=== PATIENT | female | born 1960 | race Caucasian/White ===

== ENCOUNTER → 2016-11-30 16:03 | Outpatient (CLI) | payer OTHER | END | disposition home or self-care (01) | LOC: D.MAMMO 11-27 11:00 → D.US 11-27 13:00 → D.MAMMO 09:00 | DX: N61.1 Abscess of the breast and nipple (principal); N64.4 Mastodynia ==

== ENCOUNTER 2017-09-06 09:00 | Outpatient (CLI) | payer OTHER | END 2017-09-06 23:59 | disposition home or self-care (01) | LOC: D.MAMMO 09:00 | DX: Z12.31 Encounter for screening mammogram for malignant neoplasm of breast (principal) ==

== ENCOUNTER 2018-09-08 08:00 | Outpatient (CLI) | payer OTHER | END 2018-09-08 09:00 | disposition home or self-care (01) | LOC: D.MAMMO 08:00 | DX: Z12.31 Encounter for screening mammogram for malignant neoplasm of breast (principal) ==

== ENCOUNTER → 2018-09-22 20:47 | Outpatient (CLI) | payer OTHER | END | disposition home or self-care (01) | LOC: D.MAMMO 08:30 | DX: R92.8 Other abnormal and inconclusive findings on diagnostic imaging of breast (principal) ==

== ENCOUNTER 2019-09-08 12:47 | Outpatient (CLI) | payer OTHER | END 2019-09-08 12:55 | disposition home or self-care (01) | LOC: D.MAMMO 12:47 | PROVIDERS: ATTEND Family Medicine | DX: Z12.31 Encounter for screening mammogram for malignant neoplasm of breast (principal) ==

== ENCOUNTER 2019-09-30 08:00 | Outpatient (CLI) | payer OTHER | END 2019-09-30 23:59 | disposition home or self-care (01) | LOC: D.MAMMO 08:00 | PROVIDERS: ATTEND Family Medicine | DX: R92.8 Other abnormal and inconclusive findings on diagnostic imaging of breast (principal) ==

== ENCOUNTER → 2020-04-18 09:42 | Outpatient (CLI) | payer OTHER | END | disposition home or self-care (01) | LOC: D.US 04-04 09:00 | PROVIDERS: ATTEND Family Medicine | DX: R92.8 Other abnormal and inconclusive findings on diagnostic imaging of breast (principal) ==

== ENCOUNTER → 2021-02-20 14:31 | Outpatient (CLI) | payer OTHER ==
[2020-11-28 12:39] VITALS: BMI 26.0
== END | disposition home or self-care (01) ==
LOC: D.US 14:00
PROVIDERS: ATTEND Family Medicine
DX: R92.8 Other abnormal and inconclusive findings on diagnostic imaging of breast (principal)

== ENCOUNTER 2021-03-03 05:54 | Day surgery (SDC) | payer OTHER ==
[~2021-03-03] VITALS: Ht 170.2 cm; Wt 74.5 kg
[2021-03-03 06:34] LABS: BASOPHILS 0.2 % (0-2); EOSINOPHILS 3.6 % (0-7); HEMATOCRIT 37.9 % (36.0-48.0); HEMOGLOBIN 12.4 g/dL (12-16); IMMATURE GRANULOCYTES 0.2 % (0-5); LYMPHOCYTE ABS# 3.08 10x3/uL (1.18-3.74); LYMPHOCYTES 32.3 % (15-50); MCH 30.7 pg (26.0-34.0); MCHC 32.7 g/dL (31.0-37.0); MCV 93.8 fL (80.0-100.0); MEAN PLATELET VOLUME 11.2 fL (7.4-10.4); MONOCYTES 9.1 % (2-11); NEUTROPHIL ABS# 5.22 10x3/uL (1.56-6.13); NEUTROPHILS 54.6 % (40-80); PLATELET COUNT 283 10x3/uL (130-400); RBC 4.04 10x6/uL (4.00-5.40); RDW 12.6 % (11.5-14.5); WBC 9.6 10x3/uL (4.8-10.8)
[2021-03-03 06:52] LABS: ALBUMIN 3.7 g/dL (3.4-5.0); BILIRUBIN - TOTAL 0.37 mg/dL (0.2-1.3); CALCIUM 9.4 mg/dL (8.5-10.1); CARBON DIOXIDE 26.1 mmol/L (21.0-32.0); CREATININE - SERUM 1.3 mg/dL (0.6-1.3); POTASSIUM - SERUM 4.1 mmol/L (3.5-5.1); PROTEIN - SERUM 6.8 g/dL (6.4-8.2)
[2021-03-03 06:54] LABS: INR 0.94 (0.85-1.17); PROTIME 11.6 SECONDS (11.6-15.0)
[2021-03-03 06:55] LABS: APTT 26.4 SECONDS (22.8-39.4)
[2021-03-03] MEDS ORDERED: PEPCID AC20 MG PO (07:10)
[2021-03-03] MEDS ORDERED: TENORMIN25 MG (07:10)
[2021-03-03] MEDS ORDERED: NEXIUM40 MG PO (07:11)
[2021-03-03] MEDS ORDERED: SINGULAIR10 MG PO (07:11)
[2021-03-03] MEDS ORDERED: ALDACTONE25 MG PO (07:11)
[2021-03-03] MEDS ORDERED: VITAMIN D325 MC1 PO (07:12)
[2021-03-03] MEDS ORDERED: PROBIOTIC (07:13)
[2021-03-03] MEDS ORDERED: CRANBERRY (07:13)
[2021-03-03] MEDS ORDERED: ZINC50 MG (07:13)
[2021-03-03] MEDS ORDERED: CLARITIN 10 MG10 MG PO (07:13)
[2021-03-03] MEDS ORDERED: GINGER500 MG PO (07:14)
[2021-03-03] MEDS ORDERED: TUMERIC (07:14)
[2021-03-03] MEDS ORDERED: MUCINEX600 MG PO (07:14)
[2021-03-03 07:26] VITALS: Ht 170.2 cm; Wt 74.5 kg
--- NOTE | 2021-03-03 09:04 | NUR ---
DC INSTRUCTIONS GIVEN TO PT. STATES UNDERSTANDING. DC'D IV CATH FULLY INTACT. WILL DC SHORTLY.
--- NOTE | 2021-03-03 09:07 | NUR ---
PT LEFT UNIT AT 0909 VIA
--- NOTE | 2021-03-03 13:31 | OP ---
PATIENT NAME: SVETA CALDWELL MEDICAL RECORD: [id number] :64 LOCATION:D.OPS ADMISSION DATE: SURGEON: JAMARI BOWMAN MD DATE OF OPERATION: 03/03/2021 PREOPERATIVE DIAGNOSES: 1. Chronic peptic ulcer disease. 2. Coronary artery disease. 3. Hypertension. 4. Tobacco dependence syndrome. POSTOPERATIVE DIAGNOSES: 1. Chronic peptic ulcer disease. 2. Coronary artery disease. 3. Hypertension. 4. Tobacco dependence syndrome. PROCEDURE: EGD with biopsy. SURGEON: Jamari Bowman MD DESCRIPTION OF PROCEDURE: An Olympus endoscope was advanced through the patient's mouth and esophagus. We were able to pass through the pylorus and into the duodenum. There were some mild inflammatory changes of the duodenum, but no signs of any ulcerations, masses or lesions. A random biopsy was taken in the second portion of the duodenum. As we pulled the scope back, we could see the antrum of the stomach. There were some inflammatory changes present. There was some erythema, but no signs of any leonor ulcerations noted. The areas of erythema were biopsied in the antrum and sent off for permanent specimen. As we pulled the scope back further in the body of the stomach and the proximal antrum, there was a lot of white patchy areas throughout the stomach and this incorporated about a third of the stomach wall. A random biopsy was taken over some of this white plaque substance. The retroflexed view showed that the patient had a little bit of laxity to the GE junction, but otherwise no sign of a hiatal hernia. As we pulled the scope back further, we could see the GE junction and there were no signs of any ulcerations or signs of esophagitis. We removed the insufflation from the stomach and as we pulled back, we saw no evidence of any stricturing or masses in the duodenum. COMPLICATIONS: None. CONDITION: Stable. ANESTHESIA: TIVA. BLOOD LOSS: Minimal. TRANSINT:[id number] Voice Confirmation ID: [id number] DOCUMENT ID: [id number] OPERATIVE REPORT [id number] SVETA CALDWELL JAMARI BOWMAN MD at 1331 CC: JOZEF JAY MD and OZIEL ALEJANDRO MD [id number] DICTATION DATE: 03/03/21819 CAREER DEVELOPMENT FACILITATOR: 03/03/21829 [facility] 03/03/21 [facility] [address] [place] [address]
== END 2021-03-03 09:08 | disposition home or self-care (01) ==
LOC: D.OPS 05:54
PROVIDERS: Anesthesiology; ATTEND Surgery
DX: K25.7 Chronic gastric ulcer without hemorrhage or perforation (principal); I25.10 Atherosclerotic heart disease of native coronary artery without angina pectoris; I10 Essential (primary) hypertension; F17.200 Nicotine dependence, unspecified, uncomplicated; E04.1 Nontoxic single thyroid nodule